=== PATIENT | male | born 1960 | race Caucasian/White ===

== ENCOUNTER 2017-07-26 22:52 | Emergency (ER) | payer SELFPAY ==
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
[2017-07-26] MEDS ORDERED: TETANUS/DIPHTHERIA TOX-ADULT 0.5 ML SYR (>=7YO) IM ONE (23:07)
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
[2017-07-27] MEDS ORDERED: TETRACAINE HCL 0.5% OPH SOLN 2 ML ONE (02:24)
[2017-07-27] MEDS ORDERED: TETRACAINE HCL 0.5% OPH SOLN 2 ML OU ONE (02:33)
[2017-07-27] MEDS ORDERED: BRIMONIDINE TARTRATE 0.2% OPH SOLN 5 ML OD ONE (02:33)
[2017-07-27] MEDS ORDERED: DILTIAZEM HCL INJ 25 MG/5 ML VIAL ONE (02:49)
[2017-07-27] MEDS ORDERED: TIMOLOL MALEATE 0.25% OPH SOLN 5 ML OD ONE (02:55)
[2017-07-27] MEDS ORDERED: BRIMONIDINE TARTRATE 0.2% OPH SOLN 5 ML ONE (03:00)
[2017-07-27] MEDS ORDERED: TIMOLOL MALEATE 0.25% OPH SOLN 5 ML ONE (03:08)
[2017-07-27] MEDS ORDERED: DIPH/PERTUSS(ACELL)/TETANUS VAC/PF 0.5 ML SYR (>=10YO) IM ONE (04:03)
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
[2017-07-27 07:20] VITALS: BP 141/57
== END 2017-07-27 07:54 | disposition home or self-care (01) ==
LOC: ER 22:52
DX: S02.2XXA Fracture of nasal bones, initial encounter for closed fracture (principal); S01.411A Laceration without foreign body of right cheek and temporomandibular area, initial encounter; S01.111A Laceration without foreign body of right eyelid and periocular area, initial encounter; S01.511A Laceration without foreign body of lip, initial encounter; Y09 Assault by unspecified means; Y92.59 Other trade areas as the place of occurrence of the external cause; F10.129 Alcohol abuse with intoxication, unspecified; F17.210 Nicotine dependence, cigarettes, uncomplicated
CPT/HCPCS: 99284; 90471; 71010; 70450; 70486 ×2; 72125; 90715; L0120; J3490 ×2